=== PATIENT | male | born 1970 | race Caucasian/White ===

== ENCOUNTER 2017-05-05 02:52 | Emergency (ER) | payer OTHER ==
[~2017-05-05] VITALS: Ht 177.8 cm; Wt 88.9 kg
--- NOTE | 2017-05-05 02:55 | NUR ---
PT BB SELF FROM HOME WITH C/O HEARING VOICES. PT STATES "INSTEAD OF TAKING MY PSYCH MEDS I HAVE BEEN TAKING METH AND MARIJUANA SINCE MONDAY." PT STATES HE HEARS VOICES. DENIES SI/HI. PT STATES "I AM NOT IN THE RIGHT STATE OF MIND AND NEED HELP." PT BELONGINGS REMOVED FROM ROOM FOR PATIENT SAFETY. PT NOTED TO BE WELL KEPT AND AAOX4. RESP EVEN AND NONE LABORED. SKIN PINK AND WARM. NO S/S OF ACUTE DISTRESS NOTED. VSS. CALL LIGHT WITHIN REACH. PT PLACED ON MONITOR AND POX. PT GIVEN URINAL TO GIVE URINE SPECIMEN. AWAITING MD FOR EVAL.
--- NOTE | 2017-05-05 03:22 | NUR ---
CHILD MONITOR BEDSIDE FOR BLOOD DRAW
--- NOTE | 2017-05-05 03:23 | NUR ---
URINE SPECIMEN OBTAINED FROM PT. PT RESTING COMFORTABLY IN BED. VSS
[2017-05-05 03:34] LABS: BASOPHILS # (AUTO) 0.1 /CMM (0.0-0.2); BASOPHILS % (AUTO) 0.9 % (0.0-2.0); EOSINOPHILS # (AUTO) 0.2 /CMM (0.0-0.7); EOSINOPHILS % (AUTO) 1.6 % (0.0-6.0); HEMATOCRIT 48 % (39-51); HEMOGLOBIN 16.4 g/dL (13.5-17.5); LYMPHOCYTES # (AUTO) 2.6 /CMM (0.8-4.8); LYMPHOCYTES % (AUTO) 24.7 % (20.0-44.0); MEAN CORPUSCULAR HEMOGLOBIN 30 PG (26.0-33.0); MEAN CORPUSCULAR HGB CONC 34 g/dl (31.0-36.0); MEAN CORPUSCULAR VOLUME 89 fL (80-96); MONOCYTES # (AUTO) 1.1 /CMM (0.1-1.30); MONOCYTES % (AUTO) 10.4 % (2.0-12.0); NEUTROPHILS # (AUTO) 6.5 /CMM (1.8-8.9); NEUTROPHILS % (AUTO) 62.4 % (43.0-81.0); PLATELET COUNT (AUTO) 228 /CMM (150-450); RDW COEFFICIENT OF VARIATION 13.2 (11.5-15.0); RED BLOOD CELL COUNT(AUTO) 5.38 MIL/uL (4.5-6.0); WHITE BLOOD COUNT (AUTO) 10.4 K/uL (4.3-11.0)
[2017-05-05 03:38] LABS: APPEARANCE,URINE CLEAR (CLEAR); BILIRUBIN,URINE 2+ (NEGATIVE); BLOOD, URINE NEGATIVE Ery/uL (NEGATIVE); KETONES,URINE 3+ (NEGATIVE); LEUKOCYTE ESTERASE ,URINE NEGATIVE (NEGATIVE); NITRITE, URINE NEGATIVE (NEGATIVE); PROTEIN,URINE 1+ mg/dl (NEGATIVE); UGLUCOSE NEGATIVE (NEGATIVE); UROBILINOGEN,URINE 0.2 EU/dL (0.2)
[2017-05-05 03:39] LABS: COLOR,URINE DARK YELLOW (YELLOW)
[2017-05-05 03:45] LABS: BACTERIA,URINE Few /HPF (None Seen); HYALINE CASTS, URINE Few /LPF (None Seen); RBC,URINE 0-2 /HPF (0-2); SQUAMOUS EPITHELIAL CELL,UR Rare /HPF (None Seen); WBC,URINE 0-2 /HPF (0-3)
[2017-05-05 03:46] LABS: MUCUS,URINE Few /LPF (None Seen); SPERM,URINE Rare /HPF (None Seen)
[2017-05-05 03:47] LABS: CALCIUM, SERUM 9.7 mg/dL (8.5-10.1); CARBON DIOXIDE 20 mmol/L (21-32); CHLORIDE 102 mmol/L (98-107); CREATININE 1.2 mg/dL (0.6-1.3); GLUCOSE 89 mg/dL (74-106); POTASSIUM 3.7 mmol/L (3.5-5.1); SODIUM SERUM 139 mmol/L (136-145); UREA NITROGEN, BLOOD 20 mg/dL (7-18)
[2017-05-05 03:52] LABS: ALANINE AMINOTRANSFERASE 27 U/L (12-78); ALCOHOL, BLOOD < 3 mg/dL (0-0); ALKALINE PHOSPHATASE 45 U/L (46-116); ASPARTATE AMINOTRANSFERASE 32 U/L (15-37); BILIRUBIN,DIRECT 0.5 mg/dL (0.0-0.2); BILIRUBIN,TOTAL 2.9 mg/dL (0.2-1.0); TOTAL PROTEIN, SERUM 8.2 g/dL (6.4-8.2)
[2017-05-05 03:54] LABS: ACETAMINOPHEN 0 ug/ml (10-30); SALICYLATE < 0.2 mg/dL (2.8-20.0)
--- NOTE | 2017-05-05 03:54 | NUR ---
Patient is resting comfortably in bed with eyes closed. Easily aroused. VSS
--- NOTE | 2017-05-05 04:31 | NUR ---
Patient is resting comfortably in bed with eyes closed. Easily aroused. VSS. AWAITING ART CAPELLA FOR PSYCHIATRIC EVAL.
--- NOTE | 2017-05-05 04:41 | NUR ---
ART BEDSIDE FOR PSYCH EVAL
--- NOTE | 2017-05-05 04:46 | NUR ---
ART OUT OF PT'S ROOM.
[2017-05-05] MEDS ORDERED: OLANZAPINE 5 MG TABLET PO ONE ×2 (05:00→09:30)
--- NOTE | 2017-05-05 05:05 | NUR ---
PER DARLING ARGUETA LCSW, [facility] FROM [facility] WILL CALL WHEN SHE HAS AVAILABLE BED IN THE MORNING.
[2017-05-05] MEDS ORDERED: OLANZAPINE 5 MG TABLET ONE (05:08)
--- NOTE | 2017-05-05 05:24 | NUR ---
Patient is resting comfortably in bed with eyes closed. Easily aroused. VSS
--- NOTE | 2017-05-05 05:56 | NUR ---
Patient is resting comfortably in bed with eyes closed. Easily aroused. VSS
--- NOTE | 2017-05-05 06:21 | NUR ---
Patient is resting comfortably in bed with eyes closed. Easily aroused. VSS
[2017-05-05] MEDS ORDERED: LORAZEPAM 1 MG TABLET ONE (06:27)
[2017-05-05] MEDS ORDERED: LORAZEPAM 1 MG TABLET PO ONE (06:30)
--- NOTE | 2017-05-05 07:00 | NUR ---
Patient is resting comfortably in bed with eyes closed. Easily aroused. VSS
--- NOTE | 2017-05-05 08:30 | NUR ---
PT IS AMBULATING IN HALLWAY WITH STEADY GAIT. NAD.
--- NOTE | 2017-05-05 09:00 | NUR ---
Patient is resting comfortably in bed. VSS
[2017-05-05] MEDS ORDERED: cetrizine 10 MG TABLET ONE (09:24)
[2017-05-05] MEDS ORDERED: OLANZAPINE 5 MG/TAB.RAPDIS ONE (09:49)
--- NOTE | 2017-05-05 11:42 | NUR ---
ACCEPTED BY [facility] FROM [facility], DR LOPEZ,REPORT TO [phone]
--- NOTE | 2017-05-05 11:46 | NUR ---
CALLED [facility] FOR TRANSPORT ETA OF 1230 WAS GIVEN. TRIP#[id number]
--- NOTE | 2017-05-05 11:58 | NUR ---
REPORT GIVEN TO CHAS PATRICIA FOR [facility] UPON TRANSFER.
[2017-05-05 12:51] VITALS: BP 116/58
--- NOTE | 2017-05-05 12:53 | NUR ---
PATIENT TRANSFERRED TO [facility] VIA AMBULANCE. REPORT GIVEN TO EMT WELL. PATIENT LEFT IN STABLE CONDITION.
== END 2017-05-05 12:52 ==
LOC: ER 02:56
DX: F23 Brief psychotic disorder (principal); F15.10 Other stimulant abuse, uncomplicated; F19.10 Other psychoactive substance abuse, uncomplicated; F31.9 Bipolar disorder, unspecified; F17.200 Nicotine dependence, unspecified, uncomplicated; Z59.0 Homelessness
CPT/HCPCS: 36415; 80048; 80076; 80305; 80329; 81001; 85025; 99285; A4606; G0480 ×2; Z7610; 81000-TC